=== PATIENT | male | born 1985 | race Caucasian/White ===

== ENCOUNTER 2016-09-25 11:02 | Inpatient (IN) | payer MEDICARE, OTHER ==
[~2016-09-25] VITALS: Ht 172.7 cm; Wt 70.5 kg
[~2016-09-25 11:02] MED LIST: POTASSIUM20 MEQ/15 IVPB
[2016-09-25 11:50] LABS: APPEARANCE CLEAR (CLEAR); BACTERIA MODERATE /hpf (NONE SEEN); BILIRUBIN NEGATIVE (NEGATIVE); COLOR YELLOW (YELLOW); EPITHELIAL CELLS 0-5 /hpf (0-5); GLUCOSE NEGATIVE (NEGATIVE); KETONE MODERATE mg/dL (NEGATIVE); LEUKOCYTE ESTERASE NEGATIVE (NEGATIVE); MUCUS >1+ /lpf (NONE SEEN); NITRITE NEGATIVE (NEGATIVE); PROTEIN NEGATIVE (NEGATIVE); RED CELLS - URINE 0-5 /hpf (0-5); UROBILINOGEN NORMAL (NORMAL); WHITE CELLS - URINE 0-5 /hpf (0-5)
[2016-09-25 12:21] LABS: BASOPHILS 0.1 % (0.0-2.0); EOSINOPHILS 0.1 % (0-7); HEMATOCRIT 45.4 % (42.0-54.0); HEMOGLOBIN 15.7 g/dL (13.5-17.5); IMMATURE GRANULOCYTES 0.3 % (0-5); LYMPHOCYTES 12.5 % (15-50); MCH 28.2 pg (26.0-34.0); MCHC 34.6 g/dL (31.0-37.0); MCV 81.5 fL (80.0-100.0); MEAN PLATELET VOLUME 9.4 fL (7.4-10.4); MONOCYTES 9.7 % (2-11); NEUTROPHILS 77.3 % (40-80); PLATELET COUNT 206 10x3/uL (130-400); RBC 5.57 10x6/uL (4.20-6.10); RDW 12.4 % (11.5-14.5); WBC 14.2 10x3/uL (4.8-10.8)
[2016-09-25 12:41] LABS: ALBUMIN 4.6 g/dL (3.4-5.0); ANION GAP 20.6 mmol/L (8-16); BILIRUBIN - TOTAL 0.88 mg/dL (0.2-1.3); CALCIUM 9.7 mg/dL (8.5-10.1); CARBON DIOXIDE 22.9 mmol/L (21.0-32.0); CREATININE - SERUM 1.3 mg/dL (0.6-1.3); POTASSIUM - SERUM 3.5 mmol/L (3.5-5.1); PROTEIN - SERUM 7.6 g/dL (6.4-8.2)
[2016-09-25 16:50] VITALS: BP 133/81
--- NOTE | 2016-09-25 17:00 | NUR ---
PATIENT IN ROOM WITH NO PROBLEMS AT THIS TIME. FAMILY AT BEDSIDE. IV INTACT. ASSESSMENT COMPLETE, VS STABLE. DILAUDID GIVEN IVP SLOWLY OVER 1 MINUTE. CALL LIGHT WITHIN REACH. STARTED IVF ORDERED.
--- NOTE | 2016-09-25 17:30 | NUR ---
PATIENT UP TO BR. VERY ANXIOUS AND YELLING AT THIS TIME. NAUSEATED. STATED HE JUST WANTS EVERYONE TO LEAVE HIM ALONE. FRIEND AND LEFT ROOM AT THIS TIME. EXPLAINED TO CALL VP CLIENT SERVICES LIGHT IF NEEDS ASSISTANCE. VERBALIZED UNDERSTANDING.
[2016-09-25 17:32] VITALS: BP 133/81; Ht 172.7 cm; Wt 70.5 kg
--- NOTE | 2016-09-25 18:25 | NUR ---
PATIENT OUT IN [place] YELLING ABOUT IV BEEPING. FIXED IV FOR PATIENT AND EXPLAINED THAT IF HIS ARM IS BENT WHERE HIS IV IS THAT IT WILL CONTINUE TO BEEP. PATIENT VERBALIZED UNDERSTANDING. UPSET AGAIN BECAUSE HE BENT HIS ARM, TRIED TO EXPLAIN TO PATIENT THAT WHEN I WAS FINISHED GIVING MEDS I WOULD RESTART IV. PATIENT MAD, NOT LETTING ME EXPLAIN STATED HE WANTS THE IV OFF SO HE CAN JUST GO HOME. SPOKE WITH MAINTENANCE SHOP WELDER AND EXPLAINED SITUATION. MARIVEL INTO TALK TO PATIENT.
--- NOTE | 2016-09-25 19:00 | NUR ---
PATIENT RECIEVED ATIVAN 1 MG IVP SLOWLY OVER 1 MINUTE. EXPLAINED TO PATIENT THAT ONCE HE CALMS DOWN AND LETS ATIVAN KICK IN MARIVEL STATED HE WOULD BE BACK TO RESTART IV. PATIENT VERBALIZED UNDERSTANDING. CALL LIGHT WITHIN REACH.
[2016-09-25 20:00] VITALS: BP 113/71
[2016-09-25 23:55] VITALS: BP 126/78
[2016-09-26 04:00] VITALS: BP 122/84
[2016-09-26 05:54] LABS: BASOPHILS 0.3 % (0.0-2.0); EOSINOPHILS 0.5 % (0-7); HEMATOCRIT 40.5 % (42.0-54.0); HEMOGLOBIN 13.6 g/dL (13.5-17.5); IMMATURE GRANULOCYTES 0.5 % (0-5); LYMPHOCYTES 18.6 % (15-50); MCHC 33.6 g/dL (31.0-37.0); MEAN PLATELET VOLUME 9.7 fL (7.4-10.4); MONOCYTES 9.9 % (2-11); NEUTROPHILS 70.2 % (40-80); PLATELET COUNT 179 10x3/uL (130-400); RBC 4.85 10x6/uL (4.20-6.10); RDW 12.6 % (11.5-14.5); WBC 10.9 10x3/uL (4.8-10.8)
[2016-09-26 05:57] LABS: MCV 83.5 fL (80.0-100.0)
[2016-09-26 06:12] LABS: CALC OSMOLALITY 281 mosm/kg (275-300); CHLORIDE - SERUM 106 mmol/L (98-107); CREATININE - SERUM 1.2 mg/dL (0.6-1.3); GLUCOSE 95 mg/dL (74-106); POTASSIUM - SERUM 3.4 mmol/L (3.5-5.1); SODIUM 141 mmol/L (136-145); UREA NITROGEN 16 mg/dL (7-18); eGFR NON AFRICAN AMERICAN 75 mL/min (90-120)
--- NOTE | 2016-09-26 07:00 | NUR ---
REPORT RECIEVED ASSUMED CARE. PATIENT IN BED WITH IV INTACT. NO COMPLAINTS. CALL LIGHT WITHIN REACH.
--- NOTE | 2016-09-26 07:57 | NUR ---
PATIENT RECIEVED ZOFRAN IVP SLOWLY OVER 2 MINUTES ALONG WITH DILAUDID 1 MG AT THIS TIME. IV INTACT. CALL LIGHT WITHIN REACH.
--- NOTE | 2016-09-26 08:30 | NUR ---
PATIENT UP TO SHOWER ASSISTED BY AT THIS TIME. IV COVERED, CALL LIGHT WITHIN REACH.
[2016-09-26 09:04] VITALS: BP 118/65
--- NOTE | 2016-09-26 10:14 | NUR ---
PATIENT RECIEVED ATIVAN FOR ANXIETY AT THIS TIME. NO OTHER COMPLAINTS. IV INTACT. CALL LIGHT WITHIN REACH.
--- NOTE | 2016-09-26 11:43 | NUR ---
PATIENT RECIEVED ZOFRAN FOR NAUSEA. IV INTACT. CALL LIGHT WITHIN REACH.
--- NOTE | 2016-09-26 12:50 | NUR ---
PATIENT RECIEVED IV STERIODS AND BREATHING TREATMENT AT THIS TIME. PATIENT ANXIOUS STATING THAT HE THOUGHT SOMETHING BAD WRONG WITH HIM AND THAT NO ONE WOULD TELL HIM WHAT IT WAS. EXPLAINED TO PATIENT THAT DR. WOLF ORDERED THE TREATMENTS FOR HIS COUGH WELL STERIODS AND ABX. PATIENT VERBALIZED UNDERSTANDING, CALL LIGHT WITHIN REACH.
[2016-09-26 13:01] VITALS: BP 121/78
--- NOTE | 2016-09-26 15:00 | NUR ---
PATIENT UP TO SHOWER.
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
--- NOTE | 2016-09-26 15:55 | NUR ---
PATIENT STATED FAMILY CALLED HIM A "BASTARD" FOR STAYING HERE, SO HE IS NOT STAYING HERE ANYMORE AND WANTS TO LEAVE AMA. NOTIFIED DR. WOLF. NOTIFIED HEAD OF ICT.
--- NOTE | 2016-09-26 15:56 | NUR ---
PATIENT SIGNED AMA FORM AT THIS TIME. IV REMOVED WITH CATH TIP INTACT. AMBULATED OUT OF ROOM WITH PERSONAL BELONGINGS.
--- NOTE | 2016-11-02 10:09 | DS ---
PATIENT:GARETT MOHAMUD :85 MEDICAL RECORD: [id number] DISCHARGE SUMMARY ADMISSION DATE: 09/25/16 DISCHARGE DATE: 09/26/16 This is a discharge dated 09/26/2016 from the inpatient hospital. DISCHARGE DIAGNOSES: 1. Nausea, vomiting, diarrhea. 2. Acute gastritis. 3. Hematemesis. 4. Leukocytosis. 5. Irritable bowel syndrome. 6. Gastroesophageal reflux disease. 7. Posttraumatic stress disorder. 8. Anxiety. 9. Chest pain. 10. Abdominal pain. 11. Tobacco abuse. 12. Cough. 13. Traumatic brain injury by history. HOSPITAL COURSE: Full H&P is located elsewhere on the chart on this 31-year-old male who was admitted with acute gastritis. He was started on IV fluids for hydration, PPI and Carafate. He had Ativan ordered for anxiety. He developed a cough and was given updraft treatment and Solu-Medrol times 1. He was started on azithromycin. Chest x-ray was ordered. He had an abdominal series with no acute intraabdominal abnormality. He had narcotics for pain control and antiemetics for nausea. He was very agitated and chose to leave the hospital against medical advice on the afternoon of 09/26/2016. DISCHARGE MEDICATIONS: As per discharge medication reconciliation. DISCHARGE DISPOSITION: The patient is discharged against medical advice. He will continue his current diet and level of activity and will follow up with his primary care as soon as possible. At least 30 minutes was spent in this discharge activity. TRANSINT:[id number] Voice Confirmation ID: [id number] DOCUMENT ID: [id number] Dictated By: ALONA ARVIZU I have interviewed/examined the above patient and agree with these documented findings. KVNG WOLF MD at 1009 at 1010 CC: [id number] DICTATION DATE: 10/29/16 1603 ELECTRICAL WIRER: 10/30/16 0803 DIS IN 09/26/16 [facility] [address] [place] [address]
== END 2016-09-26 16:35 | disposition left against medical advice (07) | DRG 378 ==
LOC: D.ER 11:02 → D.MS 15:40
PROVIDERS: Emergency Medicine; ADMIT Family Medicine
DX: K29.01 Acute gastritis with bleeding (principal); F17.203 Nicotine dependence unspecified, with withdrawal; F41.9 Anxiety disorder, unspecified; R07.9 Chest pain, unspecified; R10.9 Unspecified abdominal pain; K58.9 Irritable bowel syndrome, unspecified

== ENCOUNTER 2016-11-15 10:49 | Emergency (ER) | payer MEDICARE, OTHER ==
[2016-09-25 17:32] VITALS: BMI 23.6
[2016-11-15 11:39] LABS: BASOPHILS 0.2 % (0.0-2.0); EOSINOPHILS 0.1 % (0-7); HEMATOCRIT 44.5 % (42.0-54.0); HEMOGLOBIN 15.4 g/dL (13.5-17.5); IMMATURE GRANULOCYTES 0.4 % (0-5); LYMPHOCYTES 11.2 % (15-50); MCH 28.4 pg (26.0-34.0); MCHC 34.6 g/dL (31.0-37.0); MEAN PLATELET VOLUME 9.3 fL (7.4-10.4); MONOCYTES 4.6 % (2-11); NEUTROPHILS 83.5 % (40-80); PLATELET COUNT 208 10x3/uL (130-400); RBC 5.43 10x6/uL (4.20-6.10); RDW 12.9 % (11.5-14.5); WBC 13.4 10x3/uL (4.8-10.8)
[2016-11-15 12:07] LABS: APPEARANCE HAZY (CLEAR); BILIRUBIN NEGATIVE (NEGATIVE); COLOR YELLOW (YELLOW); GLUCOSE NEGATIVE (NEGATIVE); KETONE LARGE mg/dL (NEGATIVE); LEUKOCYTE ESTERASE NEGATIVE (NEGATIVE); NITRITE NEGATIVE (NEGATIVE); PH 8.5 (5.0-6.0); PROTEIN NEGATIVE (NEGATIVE); SPECIFIC GRAVITY 1.005 (1.005-1.020); UROBILINOGEN NORMAL (NORMAL)
[2016-11-15 12:10] LABS: ALBUMIN 4.5 g/dL (3.4-5.0); ALKALINE PHOSPHATASE 51 U/L (46-116); ALT (SGPT) 31 U/L (10-68); BILIRUBIN - TOTAL 0.44 mg/dL (0.2-1.3); CALC OSMOLALITY 282 mosm/kg (275-300); CALCIUM 9.4 mg/dL (8.5-10.1); CARBON DIOXIDE 18.6 mmol/L (21.0-32.0); CHLORIDE - SERUM 106 mmol/L (98-107); GLUCOSE 140 mg/dL (74-106); LIPASE 91 U/L (73-393); POTASSIUM - SERUM 3.8 mmol/L (3.5-5.1); PROTEIN - SERUM 7.7 g/dL (6.4-8.2); SODIUM 140 mmol/L (136-145); UREA NITROGEN 17 mg/dL (7-18); eGFR NON AFRICAN AMERICAN > 90 mL/min (90-120)
[2016-11-15 13:34] LABS: UDS - AMPHET NEGATIVE QUAL (NEGATIVE); UDS - BARB NEGATIVE QUAL (NEGATIVE); UDS - BENZO NEGATIVE QUAL (NEGATIVE); UDS - COCAINE NEGATIVE QUAL (NEGATIVE); UDS - METH NEGATIVE QUAL (NEGATIVE); UDS - OPIATE POSITIVE QUAL (NEGATIVE); UDS - PCP NEGATIVE QUAL (NEGATIVE); UDS - THC POSITIVE QUAL (NEGATIVE)
== END 2016-11-15 14:26 | disposition home or self-care (01) ==
LOC: D.ER 10:49
PROVIDERS: Emergency Medicine; Physician Assistant
DX: K52.9 Noninfective gastroenteritis and colitis, unspecified (principal); R11.2 Nausea with vomiting, unspecified; F41.9 Anxiety disorder, unspecified; F43.10 Post-traumatic stress disorder, unspecified; F17.200 Nicotine dependence, unspecified, uncomplicated

== ENCOUNTER 2017-08-28 13:14 | Emergency (ER) | payer MEDICARE, OTHER ==
[2016-09-25 17:32] VITALS: BMI 23.6
[2017-08-28 14:14] LABS: BASOPHILS 0.2 % (0-2); EOSINOPHILS 0.2 % (0-7); HEMOGLOBIN 15.7 g/dL (13.5-17.5); IMMATURE GRANULOCYTES 0.7 % (0-5); LYMPHOCYTES 9.5 % (15-50); MCH 28.3 pg (26.0-34.0); MCHC 34.1 g/dL (31.0-37.0); MEAN PLATELET VOLUME 9.3 fL (7.4-10.4); NEUTROPHILS 83.4 % (40-80); PLATELET COUNT 224 10x3/uL (130-400); RBC 5.54 10x6/uL (4.20-6.10); RDW 13.2 % (11.5-14.5); WBC 12.8 10x3/uL (4.8-10.8)
[2017-08-28 14:30] LABS: ALBUMIN 4.3 g/dL (3.4-5.0); ALKALINE PHOSPHATASE 54 U/L (46-116); ALT (SGPT) 61 U/L (10-68); CALC OSMOLALITY 285 mosm/kg (275-300); CALCIUM 9.7 mg/dL (8.5-10.1); CARBON DIOXIDE 23.4 mmol/L (21.0-32.0); CHLORIDE - SERUM 104 mmol/L (98-107); CREATININE - SERUM 0.8 mg/dL (0.6-1.3); GLUCOSE 152 mg/dL (74-106); POTASSIUM - SERUM 4.1 mmol/L (3.5-5.1); PROTEIN - SERUM 7.6 g/dL (6.4-8.2); SODIUM 141 mmol/L (136-145); UREA NITROGEN 18 mg/dL (7-18); eGFR NON AFRICAN AMERICAN > 90 mL/min (90-120)
[2017-08-28 14:57] LABS: APPEARANCE HAZY (CLEAR); COLOR YELLOW (YELLOW); NITRITE NEGATIVE (NEGATIVE); PROTEIN NEGATIVE (NEGATIVE); SPECIFIC GRAVITY 1.015 (1.005-1.020)
[2017-08-28 14:58] LABS: BILIRUBIN NEGATIVE (NEGATIVE); GLUCOSE NEGATIVE (NEGATIVE); KETONE MODERATE mg/dL (NEGATIVE); UROBILINOGEN NORMAL (NORMAL)
== END 2017-08-28 15:30 | disposition home or self-care (01) ==
LOC: D.ER 13:14
PROVIDERS: Emergency Medicine
DX: K52.9 Noninfective gastroenteritis and colitis, unspecified (principal); F17.200 Nicotine dependence, unspecified, uncomplicated

== ENCOUNTER 2017-09-26 08:41 | Emergency (ER) | payer MEDICARE, OTHER ==
[2016-09-25 17:32] VITALS: BMI 23.6
[2017-09-26 09:36] LABS: UDS - AMPHET NEGATIVE QUAL (NEGATIVE); UDS - BARB NEGATIVE QUAL (NEGATIVE); UDS - BENZO NEGATIVE QUAL (NEGATIVE); UDS - COCAINE NEGATIVE QUAL (NEGATIVE); UDS - OPIATE NEGATIVE QUAL (NEGATIVE); UDS - PCP NEGATIVE QUAL (NEGATIVE); UDS - THC POSITIVE QUAL (NEGATIVE)
[2017-09-26 09:41] LABS: APPEARANCE HAZY (CLEAR); BACTERIA MODERATE /hpf (NONE SEEN); BILIRUBIN NEGATIVE (NEGATIVE); COLOR YELLOW (YELLOW); EPITHELIAL CELLS 0-5 /hpf (0-5); GLUCOSE NEGATIVE (NEGATIVE); KETONE NEGATIVE (NEGATIVE); MUCUS >1+ /lpf (NONE SEEN); NITRITE NEGATIVE (NEGATIVE); PROTEIN TRACE mg/dL (NEGATIVE); RED CELLS - URINE 0-5 /hpf (0-5); SPECIFIC GRAVITY 1.015 (1.005-1.020); UROBILINOGEN NORMAL (NORMAL); WHITE CELLS - URINE 0-5 /hpf (0-5)
[2017-09-26 09:52] LABS: BASOPHILS 0.1 % (0-2); EOSINOPHILS 0 % (0-7); HEMATOCRIT 45.1 % (42.0-54.0); HEMOGLOBIN 15.2 g/dL (13.5-17.5); IMMATURE GRANULOCYTES 0.4 % (0-5); LYMPHOCYTES 7.8 % (15-50); MCH 28.1 pg (26.0-34.0); MCHC 33.7 g/dL (31.0-37.0); MCV 83.5 fL (80.0-100.0); MEAN PLATELET VOLUME 9.2 fL (7.4-10.4); MONOCYTES 6.5 % (2-11); NEUTROPHILS 85.2 % (40-80); PLATELET COUNT 238 10x3/uL (130-400); RDW 13.1 % (11.5-14.5); WBC 15.3 10x3/uL (4.8-10.8)
[2017-09-26 10:40] LABS: ALBUMIN 4.6 g/dL (3.4-5.0); ALKALINE PHOSPHATASE 51 U/L (46-116); ALT (SGPT) 34 U/L (10-68); CALC OSMOLALITY 287 mosm/kg (275-300); CALCIUM 9.7 mg/dL (8.5-10.1); CARBON DIOXIDE 25.7 mmol/L (21.0-32.0); CHLORIDE - SERUM 103 mmol/L (98-107); CREATININE - SERUM 1.1 mg/dL (0.6-1.3); GLUCOSE 126 mg/dL (74-106); LIPASE 76 U/L (73-393); PROTEIN - SERUM 8.1 g/dL (6.4-8.2); SODIUM 142 mmol/L (136-145); UREA NITROGEN 22 mg/dL (7-18); eGFR NON AFRICAN AMERICAN 82 mL/min (90-120)
== END 2017-09-26 11:11 ==
LOC: D.ER 08:41
PROVIDERS: Family Medicine
DX: F41.9 Anxiety disorder, unspecified (principal)

== ENCOUNTER 2017-12-14 18:42 | Emergency (ER) | payer MEDICARE, OTHER ==
[2016-09-25 17:32] VITALS: BMI 23.6
[2017-12-14 20:00] LABS: BASOPHILS 0.2 % (0-2); EOSINOPHILS 0 % (0-7); HEMATOCRIT 42.3 % (42.0-54.0); HEMOGLOBIN 14.5 g/dL (13.5-17.5); IMMATURE GRANULOCYTES 0.4 % (0-5); LYMPHOCYTES 9.3 % (15-50); MCH 28.1 pg (26.0-34.0); MCHC 34.3 g/dL (31.0-37.0); MEAN PLATELET VOLUME 9.2 fL (7.4-10.4); NEUTROPHILS 85.1 % (40-80); PLATELET COUNT 209 10x3/uL (130-400); RBC 5.16 10x6/uL (4.20-6.10); RDW 12.9 % (11.5-14.5); WBC 12.1 10x3/uL (4.8-10.8)
[2017-12-14 20:14] LABS: ALKALINE PHOSPHATASE 47 U/L (46-116); ALT (SGPT) 24 U/L (10-68); AMYLASE - SERUM 93 U/L (25-115); CALC OSMOLALITY 285 mosm/kg (275-300); CALCIUM 8.9 mg/dL (8.5-10.1); CARBON DIOXIDE 21.6 mmol/L (21.0-32.0); CHLORIDE - SERUM 105 mmol/L (98-107); GLUCOSE 137 mg/dL (74-106); LIPASE 59 U/L (73-393); POTASSIUM - SERUM 3.6 mmol/L (3.5-5.1); PROTEIN - SERUM 7.5 g/dL (6.4-8.2); SODIUM 142 mmol/L (136-145); UREA NITROGEN 15 mg/dL (7-18); eGFR NON AFRICAN AMERICAN > 90 mL/min (90-120)
[2017-12-14 20:59] LABS: APPEARANCE CLEAR (CLEAR); BILIRUBIN NEGATIVE (NEGATIVE); COLOR YELLOW (YELLOW); GLUCOSE NEGATIVE (NEGATIVE); KETONE MODERATE mg/dL (NEGATIVE); NITRITE NEGATIVE (NEGATIVE); PROTEIN NEGATIVE (NEGATIVE); SPECIFIC GRAVITY 1.005 (1.005-1.020); UROBILINOGEN NORMAL (NORMAL)
== END 2017-12-14 21:41 | disposition home or self-care (01) ==
LOC: D.ER 18:42
PROVIDERS: Emergency Medicine; Nurse Practitioner Family
DX: K29.00 Acute gastritis without bleeding (principal); K58.9 Irritable bowel syndrome, unspecified

== ENCOUNTER 2017-12-19 13:34 | Emergency (ER) | payer MEDICARE, OTHER ==
[2016-09-25 17:32] VITALS: BMI 23.6
[2017-12-19 15:07] LABS: BASOPHILS 0.2 % (0-2); EOSINOPHILS 0.3 % (0-7); HEMATOCRIT 44.2 % (42.0-54.0); HEMOGLOBIN 15.6 g/dL (13.5-17.5); IMMATURE GRANULOCYTES 0.4 % (0-5); LYMPHOCYTES 12.1 % (15-50); MCH 28.5 pg (26.0-34.0); MCHC 35.3 g/dL (31.0-37.0); MCV 80.7 fL (80.0-100.0); MEAN PLATELET VOLUME 9.1 fL (7.4-10.4); MONOCYTES 8.9 % (2-11); NEUTROPHILS 78.1 % (40-80); PLATELET COUNT 218 10x3/uL (130-400); RBC 5.48 10x6/uL (4.20-6.10); RDW 12.4 % (11.5-14.5); WBC 10.7 10x3/uL (4.8-10.8)
[2017-12-19 15:08] LABS: APPEARANCE HAZY (CLEAR); BILIRUBIN NEGATIVE (NEGATIVE); COLOR YELLOW (YELLOW); GLUCOSE NEGATIVE (NEGATIVE); KETONE MODERATE mg/dL (NEGATIVE); NITRITE NEGATIVE (NEGATIVE); PROTEIN NEGATIVE (NEGATIVE); UROBILINOGEN NORMAL (NORMAL)
[2017-12-19 15:29] LABS: ALKALINE PHOSPHATASE 54 U/L (46-116); ALT (SGPT) 24 U/L (10-68); BILIRUBIN - TOTAL 0.63 mg/dL (0.2-1.3); CALC OSMOLALITY 277 mosm/kg (275-300); CALCIUM 8.8 mg/dL (8.5-10.1); CARBON DIOXIDE 28.1 mmol/L (21.0-32.0); CHLORIDE - SERUM 99 mmol/L (98-107); GLUCOSE 117 mg/dL (74-106); POTASSIUM - SERUM 3.1 mmol/L (3.5-5.1); PROTEIN - SERUM 7.3 g/dL (6.4-8.2); SODIUM 138 mmol/L (136-145); UREA NITROGEN 15 mg/dL (7-18); eGFR NON AFRICAN AMERICAN > 90 mL/min (90-120)
[2017-12-19 15:55] LABS: AMYLASE - SERUM 57 U/L (25-115); LIPASE 72 U/L (73-393)
== END 2017-12-19 16:14 | disposition home or self-care (01) ==
LOC: D.ER 13:34
PROVIDERS: Emergency Medicine; Nurse Practitioner Family
DX: K58.9 Irritable bowel syndrome, unspecified (principal); R11.10 Vomiting, unspecified; F41.9 Anxiety disorder, unspecified; F17.200 Nicotine dependence, unspecified, uncomplicated

== ENCOUNTER 2018-12-31 18:07 | Emergency (ER) | payer MEDICARE, OTHER ==
[~2018-12-31] VITALS: Ht 172.7 cm; Wt 75.9 kg
[2018-12-31 18:12] VITALS: BP 154/95; Ht 172.7 cm; Wt 75.9 kg
[2018-12-31 18:53] LABS: BASOPHILS 0.2 % (0-2); EOSINOPHILS 0.1 % (0-7); HEMATOCRIT 45.9 % (42.0-54.0); HEMOGLOBIN 15.9 g/dL (13.5-17.5); IMMATURE GRANULOCYTES 0.4 % (0-5); LYMPHOCYTES 9.3 % (15-50); MCH 28.5 pg (26.0-34.0); MCHC 34.6 g/dL (31.0-37.0); MCV 82.3 fL (80.0-100.0); MEAN PLATELET VOLUME 9.1 fL (7.4-10.4); MONOCYTES 5.7 % (2-11); NEUTROPHILS 84.3 % (40-80); PLATELET COUNT 220 10x3/uL (130-400); RBC 5.58 10x6/uL (4.20-6.10); RDW 13.3 % (11.5-14.5); WBC 12.6 10x3/uL (4.8-10.8)
[2018-12-31 20:00] LABS: ALBUMIN 4.4 g/dL (3.4-5.0); ALKALINE PHOSPHATASE 60 U/L (46-116); ALT (SGPT) 21 U/L (10-68); BILIRUBIN - TOTAL 0.48 mg/dL (0.2-1.3); CALC OSMOLALITY 284 mosm/kg (275-300); CALCIUM 9.2 mg/dL (8.5-10.1); CARBON DIOXIDE 23.9 mmol/L (21.0-32.0); CHLORIDE - SERUM 105 mmol/L (98-107); CREATININE - SERUM 1.1 mg/dL (0.6-1.3); GLUCOSE 117 mg/dL (74-106); POTASSIUM - SERUM 3.9 mmol/L (3.5-5.1); PROTEIN - SERUM 8.1 g/dL (6.4-8.2); SODIUM 142 mmol/L (136-145); UREA NITROGEN 16 mg/dL (7-18); eGFR NON AFRICAN AMERICAN 82 mL/min (90-120)
[2018-12-31 20:10] LABS: T4 THYROXIN - FREE 0.99 ng/dL (0.76-1.46); THYROID STIMULATING HORMONE 1.68 uIU/mL (0.36-3.74)
== END 2018-12-31 19:00 | disposition left against medical advice (07) ==
LOC: D.ER 18:07
PROVIDERS: Family Medicine
DX: F43.12 Post-traumatic stress disorder, chronic (principal)